=== PATIENT | male | born 1975 | race Caucasian/White ===

== ENCOUNTER 2018-02-04 07:10 | Emergency (ER) | payer MEDICAID ==
[~2018-02-04] VITALS: Ht 180.3 cm; Wt 72.6 kg
[2018-02-04 07:17] VITALS: BP_SYST 142
[2018-02-04 07:49] VITALS: BP_SYST 142
== END 2018-02-04 07:49 | disposition home or self-care (01) ==
LOC: SED 07:10
DX: S42.021A Displaced fracture of shaft of right clavicle, initial encounter for closed fracture (principal); M54.5 Low back pain; W19.XXXA Unspecified fall, initial encounter; Y93.89 Activity, other specified; Y92.89 Other specified places as the place of occurrence of the external cause; Y99.8 Other external cause status
CPT/HCPCS: 72220-TC; 73030; 99284